=== PATIENT | male | born 1930 | race Caucasian/White ===

== ENCOUNTER → 2017-03-13 | Outpatient (CLI) | payer OTHER ==
--- NOTE | 2017-03-13 12:12 | PCVCIMAG ---
EXAM: BILATERAL CAROTID DUPLEX INDICATION: Carotid Occlusive Disease. FINDINGS: Doppler Measurements (centimeters per second): RIGHT: Peak CCA-79, Peak ECA-167, Diastolic ICA-37, Peak ICA-321, ICA/CCA Ratio-4.0. LEFT: Peak CCA-110, Peak ECA-102, Diastolic ICA-13, Peak ICA-90, ICA/CCA Ratio-0.8. RIGHT CAROTID: The carotid bulb has mild plaque. The proximal internal carotid artery shows 80% stenosis. The common carotid artery shows no significant stenosis. The external carotid artery shows 60% stenosis. LEFT CAROTID: The carotid bulb has moderate plaque. The proximal internal carotid artery shows <40% stenosis. The common carotid artery shows no significant stenosis. The external carotid artery shows no significant stenosis. Antegrade flow in both vertebral arteries. IMPRESSION: 80% stenosis of the right internal carotid artery with mild plaque. <40% stenosis of the left internal carotid artery with moderate plaque. LOC:[place] [id number]
--- NOTE | 2017-03-13 17:58 | PCVCIMAG ---
EXAM: AORTOILIAC DUPLEX INDICATION: Peripheral arterial disease FINDINGS: AORTA: Suprarenal aorta measures maximum diameter of 2.8 cm. There is not a fusiform infrarenal aortic aneurysm. The infrarenal aorta measures maximum diameter of 2.6 cm. In the mid infrarenal abdominal aorta is elevated systolic velocity going from 102 cm/s to 302 cm/s consistent with a 60-70% stenosis. RIGHT COMMON ILIAC ARTERY: Maximum diameter is 1.2 cm. 50-60% stenosis RIGHT EXTERNAL ILIAC ARTERY: No significant stenosis. LEFT COMMON ILIAC ARTERY: Maximum diameter is 1.0 cm. 60-70% stenosis LEFT EXTERNAL ILIAC ARTERY: No significant stenosis. IMPRESSION: 60-70% mid infrarenal abdominal aortic stenosis is suspected. 50-60% right common iliac artery stenosis. 60-70% stenosis left common iliac artery. Further evaluation with CT angiography will be obtained. LOC:[id number]
== END | disposition home or self-care (01) ==
LOC: PCVCIMAG 09:47
PROVIDERS: ATTEND Internal Medicine Cardiovascular Disease
DX: I65.23 Occlusion and stenosis of bilateral carotid arteries (principal); I70.202 Unspecified atherosclerosis of native arteries of extremities, left leg; I70.291 Other atherosclerosis of native arteries of extremities, right leg; I25.810 Atherosclerosis of coronary artery bypass graft(s) without angina pectoris; I10 Essential (primary) hypertension; I35.1 Nonrheumatic aortic (valve) insufficiency; I70.1 Atherosclerosis of renal artery; I45.10 Unspecified right bundle-branch block; I44.0 Atrioventricular block, first degree; I71.4 Abdominal aortic aneurysm, without rupture; E78.00 Pure hypercholesterolemia, unspecified; Z95.1 Presence of aortocoronary bypass graft; Z79.82 Long term (current) use of aspirin; Z87.891 Personal history of nicotine dependence
CPT/HCPCS: 93005; 93880; 93978; G0463

== ENCOUNTER → 2017-03-21 | Outpatient (CLI) | payer OTHER ==
--- NOTE | 2017-03-21 09:50 | PCVCINTER ---
EXAM: 1. CERVICOEPHALIC ARCH AORTOGRAM 2. BILATERAL CAROTID ANGIOGRAPHY 3. LEFT VERTEBROBASILAR ANGIOGRAPHY 4. BILATERAL RENAL ANGIOGRAPHY 5. AORTOGRAM AND BILATERAL LOWER EXTREMITY ANGIOGRAPHY INDICATION: Carotid occlusive disease. Left subclavian steal. Hypertension. Renal atherosclerosis. Lower extremity fatigue and pain. PROCEDURE: Procedure and risks of the procedures listed above were discussed with the patient and consent obtained. Risks including but not limited to bleeding, infection, stroke, vascular injury, neurologic injury, embolization, allergic reactions, and contrast-induced nephropathy requiring dialysis were discussed as appropriate and consent obtained. Patient was placed on the angiography table. IV conscious sedation was utilized with appropriate monitoring from 8:10 AM through 9:10 AM. The right groin was prepped and draped in the normal sterile fashion. Ultrasound was used to interrogate the right groin and demonstrate the right common femoral artery. An ultrasound image was saved. Under ultrasound guidance a 21 gauge needle was used to gain access into the right common femoral artery and a 5F vascular sheath was placed. Catheter was placed into the ascending aorta and cervicocephalic aortic arch angiogram performed. Catheter was placed into the suprarenal abdominal aorta and abdominal aortic angiogram performed. Catheter was placed at the aortic bifurcation and both oblique views of the pelvis obtained. Catheter was placed into the right common carotid artery and right common carotid angiogram performed. Catheter was placed into the left common carotid artery and left common carotid angiogram performed. Catheter was placed into the left subclavian artery and left vertebro-basilar angiogram performed. Catheter was placed into the right renal artery and right renal angiogram performed. Catheter was placed into the left renal artery and left renal angiogram performed. Catheter was placed to the level of the right external iliac artery and right leg runoff angiogram obtained. Catheter was placed at the level of the left external iliac artery and left leg runoff angiogram obtained. Catheters and wires were removed and hemostasis obtained using the FISH device. No immediate complications. FINDINGS: Cervicocephalic arch aortogram: The origins of the great vessels show adequate patency. The left vertebral artery is dominant with cranial directed flow. The right vertebral artery is not well seen. Right common carotid angiogram: This injection fills the right anterior and middle cerebral distributions which are unremarkable. The cavernous carotid and petrous carotid are patent. Concentric smooth 80% stenosis proximal internal carotid artery. The external carotid and common carotid arteries are patent. Left common carotid angiogram: This injection fills the left anterior and middle cerebral distributions which are unremarkable. The cavernous carotid and petrous carotid are patent. Mild plaque in the carotid bulb. The cervical internal carotid artery shows good patency throughout. The common carotid and external carotid arteries are patent. Left vertebrobasilar angiogram: The cervical left vertebral artery is patent. The left vertebral artery shows good patency throughout into the basilar artery which is patent. Both posterior cerebral arteries are patent. Right renal angiogram: Previous stent proximal artery showing satisfactory patency. No branch vessel stenosis. Left renal angiogram: There are 2 left renal arteries. The upper renal artery is the largest and has a stent in its proximal portion showing good patency. The lower accessory artery has a stent proximally showing mild restenosis not felt to be flow-limiting. Abdominal aortogram: There is one right and 2 left renal arteries. In the mid infrarenal abdominal aorta is concentric 70% stenosis. This corresponds to an area of 3 times velocity elevation on duplex ultrasound. The distal aorta shows more mild stenosis. Pelvis: Previous right and left common iliac artery stents show good patency. Previous right external iliac artery stent maintaining good patency. The left external iliac artery shows good patency. High-grade stenosis at the origin of the right internal iliac artery. The left internal iliac artery is patent. The right and left common femoral and profunda femoral arteries are patent. Right leg: The upper superficial femoral artery is patent. Eccentric plaque mid to distal superficial femoral artery resulting in 60% stenosis not felt to be critically flow-limiting. The popliteal artery is patent. The anterior and posterior tibial arteries are occluded. Single peroneal runoff showing satisfactory patency into the foot. Left leg: The superficial femoral artery shows mild 40% stenosis distally. The popliteal artery is patent. The posterior tibial artery is occluded. The peroneal artery is patent throughout its length. Mild diffuse stenosis in the mid anterior tibial artery. IMPRESSION: 80% stenosis proximal right internal carotid artery. The left internal carotid artery is patent. 70% stenosis mid infrarenal abdominal aorta. 60% stenosis distal right superficial femoral artery not felt to be critically flow-limiting. Bilateral infrapopliteal arterial occlusive disease as detailed above. We will have the patient see Dr. Lujan to arrange for right carotid endarterectomy. I will see the patient back in 3-4 months for follow-up of his carotids and further discussion regarding the need of aortic cuff stent graft across the area of aortic stenosis. LOC:[id number]
== END | disposition home or self-care (01) ==
LOC: PCVCINTER 07:14
PROVIDERS: ATTEND Nuclear Medicine Nuclear Cardiology
DX: I65.29 Occlusion and stenosis of unspecified carotid artery (principal); G45.8 Other transient cerebral ischemic attacks and related syndromes; I70.1 Atherosclerosis of renal artery; I10 Essential (primary) hypertension; E78.5 Hyperlipidemia, unspecified; E78.00 Pure hypercholesterolemia, unspecified
CPT/HCPCS: 36223; 36225; 36246; 36252; 75716; 76937; 99152; 99153; C1751; C1769; C1894; Q9967; 36221; J0171; J1644; J2250; J3010; J3370; J7030; J7040

== ENCOUNTER → 2017-07-21 | Outpatient (CLI) | payer OTHER | END | disposition home or self-care (01) | LOC: PCVCIMAG 12:44 | DX: I65.23 Occlusion and stenosis of bilateral carotid arteries (principal); I73.9 Peripheral vascular disease, unspecified; I77.9 Disorder of arteries and arterioles, unspecified; I25.10 Atherosclerotic heart disease of native coronary artery without angina pectoris; I10 Essential (primary) hypertension; I70.1 Atherosclerosis of renal artery; E78.00 Pure hypercholesterolemia, unspecified; J38.01 Paralysis of vocal cords and larynx, unilateral; Z87.891 Personal history of nicotine dependence; Z79.899 Other long term (current) drug therapy | CPT/HCPCS: 93880; 93923; G0463 ==

== ENCOUNTER → 2018-01-24 | Outpatient (CLI) | payer OTHER | END | disposition home or self-care (01) | LOC: PCVCIMAG 14:26 | DX: I65.22 Occlusion and stenosis of left carotid artery (principal); I25.10 Atherosclerotic heart disease of native coronary artery without angina pectoris; I71.4 Abdominal aortic aneurysm, without rupture; I10 Essential (primary) hypertension; I77.9 Disorder of arteries and arterioles, unspecified; I73.9 Peripheral vascular disease, unspecified; I70.1 Atherosclerosis of renal artery; M15.0 Primary generalized (osteo)arthritis; E78.00 Pure hypercholesterolemia, unspecified; Z87.891 Personal history of nicotine dependence; Z79.899 Other long term (current) drug therapy; Z79.82 Long term (current) use of aspirin | CPT/HCPCS: 93005; 93880; G0463 ==

== ENCOUNTER → 2018-08-14 | Outpatient (CLI) | payer OTHER ==
--- NOTE | 2018-08-14 09:36 | PCVCIMAG ---
EXAM: AORTOILIAC DUPLEX INDICATION: Peripheral arterial disease FINDINGS: AORTA: Suprarenal aorta measures maximum diameter of 2.3 cm. There is not a fusiform infrarenal aortic aneurysm. The infrarenal aorta measures maximum diameter of 2.2 cm. 60-70% distal aortic stenosis. RIGHT COMMON ILIAC ARTERY: Maximum diameter is 0.9 cm. No significant stenosis. RIGHT EXTERNAL ILIAC ARTERY: No significant stenosis. LEFT COMMON ILIAC ARTERY: Maximum diameter is 0.9 cm. No significant stenosis. LEFT EXTERNAL ILIAC ARTERY: No significant stenosis. IMPRESSION: No abdominal aortic aneurysm. 60-70% distal aortic stenosis as seen on prior angiogram. No iliac stenosis. LOC:[id number]
== END | disposition home or self-care (01) ==
LOC: PCVCIMAG 08:28
PROVIDERS: ATTEND Internal Medicine Cardiovascular Disease
DX: I73.9 Peripheral vascular disease, unspecified (principal); I71.4 Abdominal aortic aneurysm, without rupture; I10 Essential (primary) hypertension
CPT/HCPCS: 93978

== ENCOUNTER → 2019-02-28 | Outpatient (CLI) | payer OTHER ==
--- NOTE | 2019-02-28 11:51 | PCVCIMAG ---
APPROVED REPORT Study performed: 02/28/2019 10:24:07 EXAM: Comprehensive 2D, Doppler, and color-flow Echocardiogram Patient Location: Echo lab Room #: 2Status: routine BSA: 1.99 HR: 72 bpmBP: 148/62 mmHg Rhythm: NSR Other Information Study Quality: Good Indications Abnormal ECG Aortic Valve Disease CAD Hypertension/HDD RBBB 2D Dimensions IVSd: 8.42 (7-11mm)LVOT Diam: 21.88 (18-24mm) LVDd: 46.10 mm PWd: 7.66 (7-11mm)Ascending Ao: 32.63 (22-36mm) LVDs: 28.72 (25-40mm) Left Atrium: 35.48 (27-40mm) Aortic Root: 21.21 mm LV Single Plane 4CH: 56.43 % LV Single Plane 2CH: 60.29 % Biplane EF: 58.2 % Volumes Left Atrial Volume (Systole) Single Plane 4CH: 57.05 mLSingle Plane 2CH: 46.13 mL Biplane LA Volume: 53.00 mLLA ESV Index: 27.00 mL/m2 Aortic Valve AoV Peak Nick.: 3.40 m/s AO Peak Gr.: 47.69 mmHgLVOT Max P.76 mmHg AO Mean Gr.: 31.10 mmHgLVOT Mean P.45 mmHg AO V2 Mean: 2.72 m/sLVOT Max V: 0.96 m/s AO V2 VTI: 95.33 cmLVOT Mean V: 0.75 m/s ABEL (VTI): 1.01 [id number] V1 VTI: 25.53 cm ABEL Vmax: 1.06 cm2 AI Vmax: 4.20 m/sSV (LVOT): 95.91 mL AI Lyon: 3.44 m/s2 AI PHT: 354.31 ms Mitral Valve E/A Ratio: 0.9 MV Decel. Time: 195.52 ms MV E Max Nick.: 0.59 m/s MV A Nick.: 0.65 m/s IVRT: 69.20 ms TDI E/Lateral E': 6.56E/Medial E': 9.83 Medial E' Nick.: 0.06 m/s Lateral E' Nick.: 0.09 m/s Pulmonary Valve PV Peak Gr.: 5.76 mmHg Pulmonary Vein P Vein S: 0.73 m/sP Vein A: 0.37 m/s P Vein D: 0.66 m/sP Vein A Dur.: 128.0 msec P Vein S/D Ratio: 1.11 Tricuspid Valve TR Peak Nick.: 2.89 m/s TR Peak Gr.: 33.42 mmHg TV Vmax: 0.65 m/sPA Pressure: 40.00 mmHg Left Ventricle The left ventricle is normal size. There is normal LV segmental wall motion. There is normal left ventricular wall thickness. Left ventricular systolic function is normal. The left ventricular ejection fraction is within the normal range. LVEF is 55-60%. Right Ventricle The right ventricle is normal size. The right ventricular systolic function is normal. Atria The left atrium size is normal. The right atrium size is normal. Aortic Valve Aortic valve is trileaflet. Severe aortic valve sclerosis. Trace to mild aortic regurgitation. Moderate to severe aortic stenosis. Highest mean aortic valve gradient is _31 mmHg. Peak aortic valve gradient is _46_mmHg. Calculated ABEL by the continuity equation is 1.0-1.1 cm2. Mitral Valve The mitral valve is normal in structure. There is no mitral valve regurgitation noted. No evidence of mitral valve stenosis. Tricuspid Valve The tricuspid valve is normal in structure. Mild to moderate tricuspid regurgitation with a PA pressure of 40 mmHg. Pulmonic Valve The pulmonary valve is normal in structure. There is no pulmonic valvular regurgitation. Great Vessels The aortic root is normal in size. The ascending aorta is normal in size. Aortic arch is normal in caliber. IVC is normal in size and collapses >50% with inspiration. Pericardium There is no pericardial effusion. There is no pleural effusion. <Conclusion> The left ventricle is normal size. LVEF is 55-60%. The right ventricle is normal size. The left atrium size is normal. Aortic valve is trileaflet. Severe aortic valve sclerosis. Trace to mild aortic regurgitation. Moderate to severe aortic stenosis. Highest mean aortic valve gradient is _31 mmHg. Peak aortic valve gradient is _46_mmHg. Calculated ABEL by the continuity equation is 1.0-1.1 cm2. There is no mitral valve regurgitation noted. Mild to moderate tricuspid regurgitation with a PA pressure of 40 mmHg. The aortic root is normal in size. There is no pericardial effusion.
== END | disposition home or self-care (01) ==
LOC: PCVCIMAG 09:46
PROVIDERS: ATTEND Internal Medicine Cardiovascular Disease
DX: I08.2 Rheumatic disorders of both aortic and tricuspid valves (principal); I25.10 Atherosclerotic heart disease of native coronary artery without angina pectoris; I10 Essential (primary) hypertension; I45.10 Unspecified right bundle-branch block; E78.5 Hyperlipidemia, unspecified; R79.89 Other specified abnormal findings of blood chemistry; I77.9 Disorder of arteries and arterioles, unspecified; I73.9 Peripheral vascular disease, unspecified; I77.1 Stricture of artery; I71.4 Abdominal aortic aneurysm, without rupture; R93.1 Abnormal findings on diagnostic imaging of heart and coronary circulation; Z88.8 Allergy status to other drugs, medicaments and biological substances; Z79.82 Long term (current) use of aspirin; Z79.899 Other long term (current) drug therapy; Z87.891 Personal history of nicotine dependence
CPT/HCPCS: 93306